=== PATIENT | male | born 1965 | race Caucasian/White ===

== ENCOUNTER 2017-07-02 18:42 | Emergency (ER) | payer MEDICAID, OTHER ==
[~2017-07-02] VITALS: Ht 170.2 cm; Wt 107.0 kg
[2017-07-02 18:44] VITALS: BP 193/101; PULSE 126; RESP 16; TEMP 99.4; O2SAT 95
[2017-07-02] MEDS ORDERED: LISI10TA3 PO (18:57)
[2017-07-02] MEDS ORDERED: ALBUAER3 INH (18:57)
[2017-07-02] MEDS ORDERED: SYMB160A INH (18:57)
[2017-07-02] MEDS ORDERED: predniSONE 20 MG TAB PO ONE (19:45)
[2017-07-02] MEDS ORDERED: LISINOPRIL 10 MG TAB PO ONE (19:45)
[2017-07-02] MEDS: RESP: ALBUTEROL 2.5 MG/IPRATROPIUM 0.5 MG NEB (SCH) INH ×2 (19:46→19:47)
--- NOTE | 2017-07-02 19:47 | PD ---
HPI Chief Complaint: Cold / Flu Symptoms Time Seen by Provider: 19:33 Travel History International Travel<30 days: No Contact w/Intl Traveler<30days: No Traveled to known affect area: No History of Present Illness HPI This is a 52-year-old male here with productive cough and wheezing 5 days. He has a history of asthma. Patient is visiting from [place]. He developed what he thought was mild flulike illness several days ago which has progressed to a productive cough with yellow phlegm. No fevers. He began wheezing 2 days ago which is mildly improved with his Symbicort inhaler. Symptoms severity is moderate. No aggravating factors. He denies chest pain. He reports mild shortness of breath with coughing episodes. PFSH Past Medical History Hx Anticoagulant Therapy: No Asthma: Yes Cardiovascular Problems: Yes (HTN) Diabetes: No Hypertension: Yes Tetanus Vaccination: < 5 Years Influenza Vaccination: No Past Surgical History Other Surgery: Yes (left foot) Social History Alcohol Use: Yes (occas. mix drinks, beer) Tobacco Use: No (quit in 2009) Substance Use: No Allergies-Medications (Allergen,Severity, Reaction): Coded Allergies: No Known Allergies (Unverified , 07/02/17) Reported Meds & Prescriptions Reported Meds & Active Scripts Active Azithromycin 250 Mg Tab 250 Mg PO DAILY 4 Days Prednisone 50 Mg Tab 50 Mg PO DAILY 4 Days Reported Proair Hfa 8.5 GM Inh (Albuterol Sulfate) 90 Mcg/Act Aer 1 Puff INH Q4H PRN 108 mcg/actuation Symbicort Inh (Budesonide/Formoterol Fumarate) 160-4.5 Mcg/Act Aero 2 Puff INH Q12HR Lisinopril 10 Mg Tab 10 Mg PO DAILY Review of Systems Except as stated in HPI: all other systems reviewed are Neg General / Constitutional: No: Fever Eyes: No: Visual changes HENT: Positive: Sore Throat, Congestion, No: Headaches Cardiovascular: No: Chest Pain or Discomfort Respiratory: Positive: Cough, Wheezing Gastrointestinal: No: Abdominal Pain Genitourinary: No: Dysuria Musculoskeletal: No: Pain Skin: No Rash Physical Exam Narrative GENERAL: Alert and well-appearing 51-year-old male SKIN: Warm and dry. HEAD: Normocephalic. EYES: No injection or drainage. Ear/nose/throat: Clear nasal discharge. Mild pharyngeal erythema without tonsillar brisk. 2. NECK: Supple. CARDIOVASCULAR: Regular rate and rhythm . RESPIRATORY: Breath sounds equal bilaterally. No accessory muscle use. Diffuse expiratory wheezes. No respiratory distress GASTROINTESTINAL: Abdomen soft, non-tender, nondistended. MUSCULOSKELETAL: No cyanosis, or edema. BACK: Nontender without obvious deformity. No CVA tenderness. Data Data Last Documented VS Vital Signs Date Time Temp Pulse Resp B/P (MAP) Pulse Ox O2 Delivery O2 Flow Rate FiO2 07/02/17 20:33 07/02/17 20:29 72 20 97 Room Air 07/02/17 18:44 99.4 Orders Orders Prednisone (Deltasone) (07/02/17 19:45) Albuterol-Ipratropium Neb (Duoneb Neb) (07/02/17 19:45) Lisinopril (Prinivil) (07/02/17 19:45) Azithromycin (Zithromax) (07/02/17 20:30) Ed Discharge Order (07/02/17 20:27) MDM Medical Decision Making Medical Screen Exam Complete: Yes Emergency Medical Condition: Yes Differential Diagnosis Pneumonia, asthma exacerbation, bronchitis, influenza Narrative Course This is a 51-year-old male here with cough and wheezing. He is well-appearing. He does have diffuse expiratory wheezes. He was noted to be hypertensive on arrival. He reports he has not taken his blood pressure medication in several days. He denies chest pain or shortness of breath. He denies ever being hospitalized or intubated for his asthma. Patient given prednisone 60 mg, lisinopril 10 mg, DuoNeb 2. Patient reassessed her breathing treatments. He reports symptom improvement. Wheezing is nearly resolved. Repeat vitals: BP:150/86, HR 104, RR 18, 02 97%. He is well-appearing and ready for discharge Diagnosis Primary Impression: Bronchitis Additional Impression: Asthma exacerbation Qualified Codes: J45.901 - Unspecified asthma with (acute) exacerbation Referrals: Primary Care Physician Additional Instructions: Medication as directed. Follow-up with her primary doctor. Return if he developed new or worsening symptoms Scripts Azithromycin (Azithromycin) 250 Mg Tab 250 MG PO DAILY for Infection for 4 Days, #4 TAB 0 Refills Prov: Kacey Perez 07/02/17 Prednisone (Prednisone) 50 Mg Tab 50 MG PO DAILY for 4 Days, #4 TAB 0 Refills Prov: Kacey Perez 07/02/17 Disposition: 01 DISCHARGE HOME Condition: Stable Kacey Perez Jul 02, 2017 19:47
[2017-07-02 20:20] VITALS: BP 150/86; PULSE 104; RESP 18; O2SAT 97
[2017-07-02] MEDS ORDERED: PRED50 PO (20:26)
[2017-07-02] MEDS ORDERED: AZIT250T3 PO (20:26)
[2017-07-02 20:29] VITALS: BP 196/108; PULSE 72; RESP 20; O2SAT 97
[2017-07-02] MEDS ORDERED: AZITHROMYCIN 250 MG TAB PO ONE (20:30)
== END 2017-07-02 20:49 | disposition home or self-care (01) ==
LOC: PHEFT 18:42
DX: J45.901 Unspecified asthma with (acute) exacerbation (principal); I10 Essential (primary) hypertension; Z79.899 Other long term (current) drug therapy
CPT/HCPCS: 94640; 94664; 99283; J7512